=== PATIENT | male | born 1950 | race Caucasian/White ===

== ENCOUNTER 2018-07-02 10:43 | Outpatient (CLI) | payer MEDICARE ==
--- NOTE | 2018-07-02 11:55 | RAD ---
THREE VIEWS RIGHT FOOT: History: Cellulitis and pain since Friday. FINDINGS: AP, lateral, and oblique views of the right foot demonstrate joint space narrowing with sclerotic maria luisa nges and degenerative changes in the first metatarsal phalangeal joint. This is compatible with first metatarsal phalangeal joint osteoarthritic changes. No evidence of acute fractures or bony lesions s een. No evidence of lytic changes seen. No significant soft tissue swelling is seen. 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 POS: [facility]
== END 2018-07-02 10:44 | disposition home or self-care (01) ==
LOC: BICRAD 10:43
PROVIDERS: ATTEND Specialist
DX: L03.115 Cellulitis of right lower limb (principal); M19.071 Primary osteoarthritis, right ankle and foot

== ENCOUNTER 2023-03-04 14:25 | Outpatient (CLI) | payer MEDICARE | END 2023-03-04 14:26 | disposition home or self-care (01) | LOC: ULT 14:25 | PROVIDERS: ATTEND Specialist | DX: E05.90 Thyrotoxicosis, unspecified without thyrotoxic crisis or storm (principal); E04.1 Nontoxic single thyroid nodule | CPT/HCPCS: 76536 ==